=== PATIENT | male | born 1965 | race African-American/Black ===

== ENCOUNTER 2017-12-01 18:11 | Emergency (ER) | payer OTHER ==
[2017-12-01] MEDS: ACETAMINOPHEN 325 MG TAB PO (20:27)
== END 2017-12-01 20:51 | disposition home or self-care (01) ==
LOC: FTE 18:11
DX: J20.9 Acute bronchitis, unspecified (principal); J45.909 Unspecified asthma, uncomplicated
CPT/HCPCS: 99284; Z7502

== ENCOUNTER 2018-01-25 06:31 | Emergency (ER) | payer OTHER ==
[2018-01-25] MEDS: predniSONE 20 MG TAB PO (07:05)
[2018-01-25] MEDS: ALBUTEROL 0.083% (NEB) 2.5 MG/3 ML AMP NEB (07:12)
[2018-01-25] MEDS: IPRATROPIUM (NEB) 0.5 MG/2.5 ML AMP NEB (07:12)
== END 2018-01-25 08:26 | disposition home or self-care (01) ==
LOC: FTE 06:31
DX: J06.9 Acute upper respiratory infection, unspecified (principal); J45.901 Unspecified asthma with (acute) exacerbation
CPT/HCPCS: 71045; 94664; 99284-25

== ENCOUNTER 2018-05-15 08:26 | Emergency (ER) | payer OTHER | END 2018-05-15 10:05 | disposition home or self-care (01) | LOC: FTE 08:26 | DX: J06.9 Acute upper respiratory infection, unspecified (principal); J45.909 Unspecified asthma, uncomplicated | CPT/HCPCS: 99283; Z7502 ==